=== PATIENT | female | born 1940 | race Caucasian/White ===

== ENCOUNTER 2017-03-19 09:40 | Day surgery (SDC) | payer MEDICARE ==
[~2017-03-19] VITALS: Ht 149.9 cm; Wt 56.0 kg
[2017-03-19] VITALS (8 sets, daily range): BP systolic 146–164; BP diastolic 50–75; PULSE 82–100; RESP 14–19; Ht 149.9 cm; Wt 56.0 kg
[~2017-03-19 09:40] MED LIST: CEFAZOLIN 1 GM INJ ONE; CEFAZOLIN 2 GM/50 ML (PMX) 50 ML IVPB ONE; SOD CHLORIDE 0.9% 1,000 ML IV SCH
[2017-03-19] MEDS ORDERED: ONDANSETRON 4 MG INJ ONE (13:43)
[2017-03-19] MEDS ORDERED: PROPOFOL 20 ML ONE (13:43)
[2017-03-19] MEDS ORDERED: LIDOCAINE 100 MG SYRINGE ONE (13:43)
[2017-03-19] MEDS ORDERED: DEXAMETHASONE 4 MG/ML 1 ML INJ ONE (13:43)
[2017-03-19] MEDS ORDERED: FENTAnyl 50 MCG/ML VIAL ONE (13:43)
[2017-03-19] MEDS ORDERED: ACETAMINOPHEN 1000MG/100ML IV 100 ML ONE (13:43)
[2017-03-19] MEDS ORDERED: SUGAMMADEX SODIUM 200 MG/2 ML VIAL IV ONE (14:59)
[2017-03-19] MEDS ORDERED: FENTAnyl 50 MCG/ML VIAL IV PRN ×3 (15:00)
[2017-03-19] MEDS ORDERED: OXYCODONE/ACETAMINOPHEN (5/325) TAB PO PRN ×2 (15:00)
[2017-03-19] MEDS ORDERED: MEPERIDINE 25 MG INJ IV PRN (15:00)
[2017-03-19] MEDS ORDERED: DIPHENHYDRAMINE 50 MG INJ IV PRN (15:00)
[2017-03-19] MEDS ORDERED: ONDANSETRON 4 MG INJ IV PRN (15:00)
[2017-03-19] MEDS ORDERED: hydrALAzine 20 MG INJ IV PRN (15:00)
[2017-03-19] MEDS ORDERED: EPHEDrine SULFATE 50 MG/5 ML SYG IV PRN (15:00)
[2017-03-19] MEDS ORDERED: LABETALOL HCL 20MG INJ IV PRN (15:00)
[2017-03-19] MEDS ORDERED: KETOROLAC 30 MG INJ IV PRN (15:00)
[2017-03-19] MEDS ORDERED: HYDROCODONE/APAP (5/325) TAB PO ONE (15:30)
--- NOTE | 2017-03-19 19:50 | OPR ---
DATE OF OPERATION: 03/19/2017 PREOPERATIVE DIAGNOSIS: Atypical lesion, left breast. POSTOPERATIVE DIAGNOSIS: Atypical lesion, left breast. OPERATION PERFORMED: Needle directed left partial mastectomy. ANESTHESIA: General. ANESTHESIOLOGIST: Yris Stringer MD SURGEON: Jeromy Javier MD CABLE OPERATOR: Nicole Santillan MD INDICATIONS FOR PROCEDURE: Patient is a 76-year-old female, who underwent screening mammography. She was found to have a suspicious lesion in her left breast. Subsequent biopsy confirmed an atypical lesion with the possibility of underlying malignancy. She was counseled as to the need for complete excisional biopsy. She consented and was scheduled for surgery. DESCRIPTION OF PROCEDURE: On the morning of surgery, patient presented to [facility] where she underwent localization of the lesion performed by attending radiologist, . Subsequently, she was brought to the operating theater and placed under general anesthesia. The left breast was prepped and draped in the usual fashion. A curvilinear incision was made in the region of the previously placed localization wire. Subcutaneous tissue was dissected with cautery. The skin edges were then elevated with skin hooks and wide circumferential dissection of the tissue associated with the wire then took place taking great care to ensure adequate margin. Specimen was elevated, transected, oriented and sent for radiographic confirmation of capture. Capture was confirmed. The specimen was then sent for permanent pathologic analysis. The wound was irrigated. Minimal bleeding was controlled with cautery. The skin was then reapproximated with a 4-0 Vicryl suture in subcuticular fashion and benzoin and Steri-Strips were applied. The patient tolerated the procedure well. Estimated blood loss was 20 cc. There were no complications and the patient was transported in stable condition to the recovery room where a circumferential compression dressing was applied. Dictated By: Jeromy Javier MD /dex/jacklyn /Document#: [id number]
== END 2017-03-19 16:28 | disposition home or self-care (01) ==
LOC: SDS 09:40
PROVIDERS: ATTEND Surgery Surgical Oncology
DX: N63 Unspecified lump in breast (principal); I10 Essential (primary) hypertension; Z85.89 Personal history of malignant neoplasm of other organs and systems
CPT/HCPCS: 19301; 88307; J0690; J1100; J1885; J2001; J2405; J3010; J0131